=== PATIENT | female | born 1995 | race Caucasian/White ===

== ENCOUNTER 2022-06-26 17:08 | Emergency (ER) | payer OTHER, SELFPAY ==
[2022-06-26 17:39] VITALS: BP 104/68; PULSE 71; RESP 16; TEMP 36.4; O2SAT 99; BMI 27.8
--- NOTE | 2022-06-26 19:08 | ED_ITS ---
HPI - General Adult General Date Seen: 06/26/22 Chief complaint: Abdominal Pain Stated complaint: Stomach Pain Time Seen by Provider: 06/26/22 18:47 Source: patient History of Present Illness HPI narrative: Patient is a 27-year-old woman who reports epigastric discomfort, bloating and nausea for the past week. She has a history of gastroesophageal reflux for which she takes Famontidine twice a day. She has had endoscopy x2 which she says has not shown significant findings, perhaps some mild inflammation. She has no history of ulcers. She has also had colonoscopies in the past secondary to a family history of polyps. She denies any black or bloody stools. She has not had any sharp or severe abdominal pain, abdominal pain has been mild in intensity, radiates to the back. Is not worsened with eating or position. She has had some periods where it has resolved, but is not aware of anything that is helped it feel better or worse, aside from feeling slightly better when she leans forward. She has not tried any medications. She does have a history of endometriosis. Last period was May 31 and her she says that her bleeding was somewhat unusual. Length of her cycle was normal but she says her bleeding was ?strange?. She is trying to get , she has been trying for 1 month, and is very stressed out that her hormones might be out of whack. She had surgery in her nose last month, she was on antibiotics both before surgery and after surgery and she is worried this may have affected her hormones. She was on control briefly but has discontinued that. She is worried about testing for because if it is negative that is going to stress her out. She has not had any urinary symptoms. She denies fevers or chills. She has had pain somewhat like this before although slightly different. No history of gallbladder disease. She does not smoke or drink. Takes occasional nonsteroidals but not significantly. Related Data Home Medications Medication Instructions Recorded Confirmed albuterol sulfate 2.5 mg/3 mL mg INHALATION PRN 05/27/22 05/27/22 (0.083 %) solution for nebulization aluminum chloride 20 % topical See Rx Instructions TOPICAL 05/27/22 05/27/22 solution .Bedtime calcium carbonate 500 mg-vitamin 1 tab PO DAILY 05/27/22 05/27/22 D3 10 mcg (400 unit) tablet carboxymethylcellulose sodium 1 % 1 drp OPHTHALMIC (EYE) 05/27/22 05/27/22 eye liquid gel drops cetirizine 10 mg tablet 10 mg PO DAILY 05/27/22 05/27/22 chlorhexidine gluconate 0.12 % 15 ml PO BID ml 05/27/22 05/27/22 mouthwash clindamycin 1 %-benzoyl peroxide 5 1 TOPICAL BID 05/27/22 05/27/22 % topical gel clindamycin phosphate 1 % lotion 1 TOPICAL BID 05/27/22 05/27/22 cyclosporine 0.05 % eye drops 1 drp OPHTHALMIC (EYE) BID 05/27/22 05/27/22 desoximetasone 0.25 % topical 1 TOPICAL BID 05/27/22 05/27/22 ointment doxylamine succinate 25 mg tablet mg PO 05/27/22 05/27/22 famotidine 20 mg tablet mg PO DAILY 05/27/22 05/27/22 fluticasone propionate 0.005 % 1 TOPICAL BID 05/27/22 05/27/22 topical ointment gabapentin 300 mg capsule mg PO TID 05/27/22 05/27/22 ibuprofen 200 mg tablet mg PO .Qid Prn 05/27/22 05/27/22 loratadine 10 mg tablet 10 mg PO DAILY 05/27/22 05/27/22 mupirocin 2 % topical ointment 1 TOPICAL TID 05/27/22 05/27/22 polyethylene glycol 3350 17 g PO DAILY 05/27/22 05/27/22 gram/dose oral powder quetiapine 100 mg tablet mg PO .Bedtime 05/27/22 05/27/22 suvorexant 10 mg tablet 10 mg PO .Bedtime 05/27/22 05/27/22 tizanidine 4 mg tablet 4 mg PO PRN 05/27/22 05/27/22 triamcinolone acetonide 55 mcg 2 INTRANASAL DAILY 05/27/22 05/27/22 nasal spray aerosol Allergies Allergy/AdvReac Type Severity Reaction Status Date / Time hydrocodone Allergy Mild Rash Verified 06/03/22 15:23 adhesive Allergy Unknown Rash Verified 06/03/22 15:23 Iodinated Diagnostic Agents Allergy Severe Unknown Uncoded 06/03/22 15:23 Review of Systems Status of ROS: Reports: 10 or more systems reviewed and unremarkable except as noted in History and below [facility] Social History Smoking Status: Never smoker Exam Narrative: Exam Narrative: Vital signs as noted below. In general, an alert, well-appearing patient. Head: Normocephalic, atraumatic. Eyes: Pupils are equal reactive. Extraocular movements are full. Conjunctivae are normal. ENT: Mucous membranes are moist. Throat is normal. Neck: Supple without lymphadenopathy. Heart: Regular rate and rhythm. No murmur or rub. Lungs: Clear bilaterally. No increased work of breathing, crackles or wheezes. No CVA tenderness. Abdomen: Soft and nondistended. Mild epigastric tenderness without rebound guarding or rigidity. Negative Rosado's test. No lower abdominal tenderness. No organomegaly. Extremities: Well perfused. No edema. No calf tenderness. Pulses intact. Neurologic: Patient is alert and oriented to person and place. Speech is fluent. Face is symmetric. Moves all extremities equally. Affect: Normal. Skin: Warm and dry. Well perfused. Const: Vital Signs, click to edit/add: Vital Signs - 24 hr 06/26/22 17:39 Temperature 97.6 F Pulse Rate [Right Pulse Oximeter] 71 Respiratory Rate 16 Blood Pressure [Ri ght Upper Arm] 104/68 Pulse Oximetry 99 Documenting provider has reviewed patient's vital signs: yes Course Course Hospital Course: Recommended that we check some lab work, which she is enthusiastic about. I did tell her that we typically would check a test, and initially she did not want me to do that because if it is negative she will find it too stressful. I discussed with her that on the off chance for test was positive that would change the way we would typically workup abdominal pain, so I do think that is an important test to do given that she is actively trying to get . She did agree to go forward with that. Diagnostic considerations include gastritis, peptic ulcer disease, pancreatitis, hepatitis, cholecystitis or biliary colic. I think the latter are somewhat less likely given the absence of severe symptoms over 1 week. She does have a history of endometriosis and that is a possibility as well. She has had a laparoscopic surgery in the past but I think this is unlikely to represent bowel obstruction given the absence of vomiting, significant abdominal tenderness or more diffuse pain. Labs are all reassuring. Her test is negative. UA is otherwise negative. LFTs are normal, lipase is normal. White blood cell count is normal, CRP is less than 0.5. Her abdominal exam is benign, symptoms have been present for a week, my suspicion for significant abdominal process is at this time quite low. I have reviewed all this with her, and suggested that we try a PPI for a couple of weeks and see if she feels improved on that. Given that she is trying to get , I suggested that she take another test in a few days and if that is positive then she may want to discontinue the PPI. She then told me that really she is most concerned about her bloating, and said that she felt she needed a ?scan to evaluate her bloating. She asked if she could have an ultrasound. I explained that given her normal labs, I do not think imaging is likely to be valuable, particularly an ultrasound, at this time, to evaluate bloating. She does not want to try Prilosec, she says she will just follow up with her primary doctor. I printed out her labs for her so that she can take those when she does follow-up. Certainly if she has acute worsening, significant pain, vomiting, fever etcetera I would want her to return to the em ergency department. Vital Signs Vital signs: Initial Vital Signs Temperature 97.6 F 06/26/22 17:39 Temperature Source Temporal Artery Scan 06/26/22 17:39 Pulse Rate 71 06/26/22 17:39 Respiratory Rate 16 06/26/22 17:39 Blood Pressure 104/68 06/26/22 17:39 Blood Pressure Mean 80 06/26/22 17:39 Blood Pressure Position Sitting 06/26/22 17:39 Pulse Oximetry 99 06/26/22 17:39 Oxygen Delivery Method 06/26/22 17:39 Vital Signs Temperature 97.6 F 06/26/22 17:39 Pulse Rate 71 06/26/22 17:39 Respiratory Rate 16 06/26/22 17:39 Blood Pressure 104/68 06/26/22 17:39 Pulse Oximetry 99 06/26/22 17:39 Temperature 97.6 F 06/26/22 17:39 Pulse Rate 71 06/26/22 17:39 Respiratory Rate 16 06/26/22 17:39 Blood Pressure 104/68 06/26/22 17:39 Pulse Oximetry 99 06/26/22 17:39 Medical Decision Making Lab Data Labs: Lab Results 06/26/22 06/26/22 06/26/22 Range/Units 19:05 19:17 19:17 WBC 5.70 (4.50-11.00) K/uL RBC 4.46 (4.00-5.20) m/uL Hgb 13.3 (12.0-16.0) gm/dL Hct 38.8 (33.0-51.0) % MCV 87 (80-100) fL MCH 30 (26-34) pg MCHC 34 (32-36) gm/dL RDW Coeff of Keira 12.3 (11.5-15.5) % Plt Count 257 (140-440) K/uL Neut % (Auto) 52.5 (42.0-72.0) % Lymph % (Auto) 34.2 (20-44) % [place] % (Auto) 9.6 (0.0-11.0) % Eos % (Auto) 2.6 (0.0-7.0) % Baso % (Auto) 1.1 (0.0-3.0) % Neut # (Auto) 2.99 (1.7-7.0) K/uL Lymph # (Auto) 1.95 (0.90-2.90) K/uL [place] # (Auto) 0.50 (0.00-0.90) K/UL Eos # (Auto) 0.15 (0.00-0.50) K/uL Baso # (Auto) 0.06 (0.00-0.30) K/uL Abs Immat Gran (auto) 0.00 (0.00-0.30) K/uL Sodium 140 (135-149) mmol/L Potassium 4.0 (3.6-5.1) mmol/L Chloride 106 (96-114) mmol/L Carbon Dioxide 25 (20-32) mmol/L BUN 11 (5-24) mg/dL Creatinine 0.6 (0.5-1.5) mg/dL Estimated Creat Clear 116.51 Estimated GFR 126 ml/min Glucose 93 (60-115) mg/dL Calcium 9.5 (8.4-10.6) mg/dL Total Bilirubin 0.3 (0.1-1.5) mg/dL Direct Bilirubin 0.1 (0.0-0.5) mg/dL AST 20 (12-35) U/L ALT 14 (4-35) U/L Alkaline Phosphatase 71 (40-150) U/L C-Reactive Protein < 0.5 L (0.5-1.0) mg/dL Total Protein 7.0 (6.0-8.3) g/dL Albumin 4.5 (3.3-5.0) g/dL Lipase 51 (23-300) U/L HCG, Qual (Negative) Urine Color Yellow (Yellow) Urine Appearance Clear (Clear) Urine pH 7.0 (5.0-8.5) Ur Specific [place] 1.015 (1.000-1.030) Urine Protein Negative (Negative) Urine Glucose (UA) Negative (Negative) Urine Ketones Negative (Negative) Urine Blood Negative (Negative) Urine Nitrite Negative (Negative) Urine Bilirubin Negative (Negative) Urine Urobilinogen 0.2 (0.2-1.0) Ur Leukocyte Esterase Negative (Negative) Urine RBC 0-2 (0-2) Urine WBC 0-2 (0-5) Ur Squamous Epith Cells None (None-Few) Urine Bacteria None (None) 06/26/22 Range/Units 19:17 WBC (4.50-11.00) K/uL RBC (4.00-5.20) m/uL Hgb (12.0-16.0) gm/dL Hct (33.0-51.0) % MCV (80-100) fL MCH (26-34) pg MCHC (32-36) gm/dL RDW Coeff of Keira (11.5-15.5) % Plt Count (140-440) K/uL Neut % (Auto) (42.0-72.0) % Lymph % (Auto) (20-44) % [place] % (Auto) (0.0-11.0) % Eos % (Auto) (0.0-7.0) % Baso % (Auto) (0.0-3.0) % Neut # (Auto) (1.7-7.0) K/uL Lymph # (Auto) (0.90-2.90) K/uL [place] # (Auto) (0.00-0.90) K/UL Eos # (Auto) (0.00-0.50) K/uL Baso # (Auto) (0.00-0.30) K/uL Abs Immat Gran (auto) (0.00-0.30) K/uL Sodium (135-149) mmol/L Potassium (3.6-5.1) mmol/L Chloride (96-114) mmol/L Carbon Dioxide (20-32) mmol/L BUN (5-24) mg/dL Creatinine (0.5-1.5) mg/dL Estimated Creat Clear Estimated GFR ml/min Glucose (60-115) mg/dL Calcium (8.4-10.6) mg/dL Total Bilirubin (0.1-1.5) mg/dL Direct Bilirubin (0.0-0.5) mg/dL AST (12-35) U/L ALT (4-35) U/L Alkaline Phosphatase (40-150) U/L C-Reactive Protein (0.5-1.0) mg/dL Total Protein (6.0-8.3) g/dL Albumin (3.3-5.0) g/dL Lipase (23-300) U/L HCG, Qual Negative (Negative) Urine Color (Yellow) Urine Appearance (Clear) Urine pH (5.0-8.5) Ur Specific [place] (1.000-1.030) Urine Protein (Negative) Urine Glucose (UA) (Negative) Urine Ketones (Negative) Urine Blood (Negative) Urine Nitrite (Negative) Urine Bilirubin (Negative) Urine Urobilinogen (0.2-1.0) Ur Leukocyte Esterase (Negative) Urine RBC (0-2) Urine WBC (0-5) Ur Squamous Epith Cells (None-Few) Urine Bacteria (None) Discharge Plan Discharge Clinical Impression: Bloating, Acute epigastric pain Patient Disposition: Home, Self-Care Condition: Stable Instructions: Epigastric Pain (ED) Additional Instructions: Follow-up with your doctor as planned. If you have severe worsening pain, vomiting, fevers etc. return for re-evaluation. You can certainly consider a trial of Prilosec if you would like. Is available [id number]. Prescriptions: No Action cyclosporine 0.05 % drops 1 drp ophthalmic (eye) BID 0RF suvorexant 10 mg tablet 10 mg PO .Bedtime 0RF calcium carbonate-vitamin D3 500 mg-10 mcg (400 unit) tablet 1 tab PO DAILY 0RF chlorhexidine gluconate 0.12 % mouthwash 15 ml PO BID 0RF clindamycin phosphate 1 % lotion 1 topical BID 0RF carboxymethylcellulose sodium 1 % drops, liquid gel 1 drp ophthalmic (eye) 0RF loratadine 10 mg tablet 10 mg PO DAILY 0RF polyethylene glycol 3350 17 gram/dose powder PO DAILY 0RF doxylamine succinate 25 mg tablet PO 0RF gabapentin 300 mg capsule PO TID 0RF ibuprofen 200 mg tablet PO .Qid Prn 0RF desoximetasone 0.25 % ointment 1 topical BID 0RF famotidine 20 mg tablet PO DAILY 0RF fluticasone propionate 0.005 % ointment 1 topical BID 0RF Rx Instructions: TO AFFECTED AREA quetiapine 100 mg tablet PO .Bedtime 0RF clindamycin-benzoyl peroxide 1-5 % gel 1 topical BID 0RF aluminum chloride 20 % solution See Rx Instructions topical .Bedtime 0RF Rx Instructions: USE ONCE NIGHTLY FOR 2-3 NIGHTS, THEN 1-2 TIMES PER WEEK NIGHT. cetirizine 10 mg tablet 10 mg PO DAILY 0RF albuterol sulfate 2.5 mg /3 mL (0.083 %) solution for nebulization inhalation PRN0RF triamcinolone acetonide 55 mcg aerosol,spray 2 intranasal DAILY 0RF mupirocin 2 % ointment 1 topical TID 0RF tizanidine 4 mg tablet 4 mg PO PRN0RF Follow Up/Referrals: Provider,Not a Local [Primary Care Provider] - Stand Alone Forms: [employer] Info Instructions
[2022-06-26 19:23] LABS: Basophils Absolute Auto 0.06 K/uL (0.00-0.30); Basophils Percent Auto 1.1 % (0.0-3.0); Eosinophils Absolute Auto 0.15 K/uL (0.00-0.50); Eosinophils Percent Auto 2.6 % (0.0-7.0); Hematocrit 38.8 % (33.0-51.0); Hemoglobin* 13.3 gm/dL (12.0-16.0); Lymphocytes Absolute Auto 1.95 K/uL (0.90-2.90); Lymphocytes Percent Auto 34.2 % (20-44); Mean Corpuscular HGB Conc 34 gm/dL (32-36); Mean Corpuscular Hemoglobin 30 pg (26-34); Mean Corpuscular Volume 87 fL (80-100); Monocytes Percent Auto 9.6 % (0.0-11.0); Neutrophils Absolute Auto 2.99 K/uL (1.7-7.0); Neutrophils Percent Auto 52.5 % (42.0-72.0); Platelet Count* 257 K/uL (140-440); RDW Coefficient of Variation % 12.3 % (11.5-15.5); Red Blood Count 4.46 m/uL (4.00-5.20)
[2022-06-26 19:35] LABS: Slide Review Reflex No
[2022-06-26 19:37] LABS: Albumin* 4.5 g/dL (3.3-5.0); Chloride* 106 mmol/L (96-114); Sodium* 140 mmol/L (135-149)
[2022-06-26 19:40] LABS: Alkaline Phosphatase* 71 U/L (40-150); Aspartate Amino Transferase* 20 U/L (12-35); Bilirubin Direct* 0.1 mg/dL (0.0-0.5); Bilirubin Total* 0.3 mg/dL (0.1-1.5); Carbon Dioxide* 25 mmol/L (20-32); Creatinine* 0.6 mg/dL (0.5-1.5); Est. Creatinine Clearance* 116.51; Estimated Glomerular Filt Rate 126 ml/min; HCG Qualitative Serum* Negative (Negative)
[2022-06-26 19:41] LABS: Alanine Aminotransferase* 14 U/L (4-35); Blood Urea Nitrogen* 11 mg/dL (5-24); Calcium* 9.5 mg/dL (8.4-10.6); Glucose* 93 mg/dL (60-115); Lipase* 51 U/L (23-300)
[2022-06-26 19:46] LABS: C Reactive Protein* < 0.5 mg/dL (0.5-1.0)
[2022-06-26 19:55] LABS: Appearance Urine Clear (Clear); Bilirubin Urine Negative (Negative); Blood Urine Negative (Negative); Color Urine Yellow (Yellow); Glucose Urine Negative (Negative); Ketones Urine Negative (Negative); Leukocyte Esterase Urine Negative (Negative); Nitrite Urine Negative (Negative); Protein Urine Negative (Negative); Specific Gravity Urine 1.015 (1.000-1.030); Urobilinogen Urine 0.2 (0.2-1.0)
[2022-06-26 20:08] LABS: RBC Urine 0-2 (0-2); WBC Urine 0-2 (0-5)
== END 2022-06-26 20:45 | disposition home or self-care (01) ==
PROVIDERS: Emergency Provider Emergency Medicine
DX: R10.13 Epigastric pain (principal); R14.0 Abdominal distension (gaseous)
CPT/HCPCS: 36415; 80048; 80076; 81001; 83690; 84703; 85025; 86140; 99284

== ENCOUNTER 2022-07-10 18:03 | Emergency (ER) | payer OTHER, SELFPAY ==
[2022-07-10 18:22] VITALS: BP 112/67; PULSE 74; RESP 16; TEMP 36.6; O2SAT 100; BMI 27.5
--- NOTE | 2022-07-10 18:29 | ED.NURSE ---
Pt answered yes to suicide screening question- have you had thoughts of suicide in the last 2 weeks. Pt has spoken to her spouse and her psychiatrist about this. Dr Welsh updated.
--- NOTE | 2022-07-10 18:36 | ED_ITS ---
HPI - General Adult General Time Seen by Provider: 18:36 Date Seen: 07/10/22 Chief complaint: Eye Problems Stated complaint: Left eye pain Time Seen by Provider: 07/10/22 18:28 Source: patient Mode of arrival: ambulatory Limitations: no limitations History of Present Illness HPI narrative: Patient is a 27 year white female has history of seasonal allergies, had some yellowish mattery material under her eyelid on the left this morning seems to gotten better today. She took her son to the zoo recently. She has history of chronic dry eyes, uses Restasis, and also uses Zyrtec daily. She has no eye redness now and no visual problem no sinus congestion or headache Related Data Home Medications Medication Instructions Recorded Confirmed albuterol sulfate 2.5 mg/3 mL mg inhalation PRN 05/27/22 05/27/22 (0.083 %) solution for nebulization aluminum chloride 20 % topical See Rx Instructions topical 05/27/22 05/27/22 solution .Bedtime calcium carbonate 500 mg-vitamin 1 tab PO DAILY 05/27/22 05/27/22 D3 10 mcg (400 unit) tablet carboxymethylcellulose sodium 1 % 1 drp ophthalmic (eye) 05/27/22 05/27/22 eye liquid gel drops cetirizine 10 mg tablet 10 mg PO DAILY 05/27/22 05/27/22 chlorhexidine gluconate 0.12 % 15 ml PO BID 05/27/22 05/27/22 mouthwash clindamycin 1 %-benzoyl peroxide 5 1 topical BID 05/27/22 05/27/22 % topical gel clindamycin phosphate 1 % lotion 1 topical BID 05/27/22 05/27/22 cyclosporine 0.05 % eye drops 1 drp ophthalmic (eye) BID 05/27/22 05/27/22 desoximetasone 0.25 % topical 1 topical BID 05/27/22 05/27/22 ointment doxylamine succinate 25 mg tablet mg PO 05/27/22 05/27/22 famotidine 20 mg tablet mg PO DAILY 05/27/22 05/27/22 fluticasone propionate 0.005 % 1 topical BID 05/27/22 05/27/22 topical ointment gabapentin 300 mg capsule mg PO TID 05/27/22 05/27/22 ibuprofen 200 mg tablet mg PO .Qid Prn 05/27/22 05/27/22 loratadine 10 mg tablet 10 mg PO DAILY 05/27/22 05/27/22 mupirocin 2 % topical ointment 1 topical TID 05/27/22 05/27/22 polyethylene glycol 3350 17 g PO DAILY 05/27/22 05/27/22 gram/dose oral powder quetiapine 100 mg tablet mg PO .Bedtime 05/27/22 05/27/22 suvorexant 10 mg tablet 10 mg PO .Bedtime 05/27/22 05/27/22 tizanidine 4 mg tablet 4 mg PO PRN 05/27/22 05/27/22 triamcinolone acetonide 55 mcg 2 intranasal DAILY 05/27/22 05/27/22 nasal spray aerosol Allergies Allergy/AdvReac Type Severity Reaction Status Date / Time hydrocodone Allergy Mild Rash Verified 06/03/22 15:23 adhesive Allergy Unknown Rash Verified 06/03/22 15:23 Iodinated Diagnostic Agents Allergy Severe Unknown Uncoded 06/03/22 15:23 Review of Systems Narrative: Negative for recent allergies, cold, COVID symptoms PFSH PFSH Social History Smoking Status: Former smoker Do you use any of these nicotine containing products: None How often do you have a drink containing alcohol: never How often do you have six or more drinks on one occasion: Never AUDIT-C Alcohol total score: 0 Non-prescribed substance use: denies use Exam Narrative: Exam Narrative: Objective HEENT is unremarkable no evidence of conjunctivitis, no facial asymmetry no scleral icterus Const: Vital Signs, click to edit/add: Vital Signs - 24 hr 07/10/22 18:22 Temperature 97.9 F Pulse Rate [Left P ulse Oximeter] 74 Respiratory Rate 16 Blood Pressure [Le ft Upper Arm] 112/67 Pulse Oximetry 100 Oxygen Delivery Me thod Room Air Course Vital Signs Vital signs: Initial Vital Signs Temperature 97.9 F 07/10/22 18:22 Temperature Source Temporal Artery Scan 07/10/22 18:22 Pulse Rate 74 07/10/22 18:22 Respiratory Rate 16 07/10/22 18:22 Blood Pressure 112/67 07/10/22 18:22 Blood Pressure Mean 82 07/10/22 18:22 Blood Pressure Position Sitting 07/10/22 18:22 Pulse Oximetry 100 07/10/22 18:22 Oxygen Delivery Method 07/10/22 18:22 Vital Signs Temperature 97.9 F 07/10/22 18:22 Pulse Rate 74 07/10/22 18:22 Respiratory Rate 16 07/10/22 18:22 Blood Pressure 112/67 07/10/22 18:22 Pulse Oximetry 100 07/10/22 18:22 Oxygen Delivery Method 07/10/22 18:22 Temperature 97.9 F 07/10/22 18:22 Pulse Rate 74 07/10/22 18:22 Respiratory Rate 16 07/10/22 18:22 Blood Pressure 112/67 07/10/22 18:22 Pulse Oximetry 100 07/10/22 18:22 Oxygen Delivery Method 07/10/22 18:22 Medical Decision Making MDM Narrative Medical decision making narrative: Patient has a history of dry eyes, would continue the Restasis, she also has a history of seasonal allergies and she may wish to substitute Benadryl 25 mg b.i.d. to t.i.d. over the next several days and then return to his Zyrtec after that if she improves. I do not see evidence of conjunctivitis at this point, update her regular doctor within the next couple of days as needed Discharge Plan Discharge Clinical Impression: Allergies Patient Disposition: Home, Self-Care Condition: Stable Additional Instructions: Recommend continue her Restasis eyedrops, may try some Benadryl instead of the Zyrtec for a couple of days, would not use Zyrtec and Benadryl the same day. Update her primary care doctor as needed Activity Level: No Restrictions Discharge Diet: Regular Prescriptions: No Action cyclosporine 0.05 % drops 1 drp ophthalmic (eye) BID suvorexant 10 mg tablet 10 mg PO .Bedtime calcium carbonate-vitamin D3 500 mg-10 mcg (400 unit) tablet 1 tab PO DAILY chlorhexidine gluconate 0.12 % mouthwash 15 ml PO BID clindamycin phosphate 1 % lotion 1 topical BID carboxymethylcellulose sodium 1 % drops, liquid gel 1 drp ophthalmic (eye) loratadine 10 mg tablet 10 mg PO DAILY polyethylene glycol 3350 17 gram/dose powder PO DAILY doxylamine succinate 25 mg tablet PO gabapentin 300 mg capsule PO TID ibuprofen 200 mg tablet PO .Qid Prn desoximetasone 0.25 % ointment 1 topical BID famotidine 20 mg tablet PO DAILY fluticasone propionate 0.005 % ointment 1 topical BID Rx Instructions: TO AFFECTED AREA quetiapine 100 mg tablet PO .Bedtime clindamycin-benzoyl peroxide 1-5 % gel 1 topical BID aluminum chloride 20 % solution See Rx Instructions topical .Bedtime Rx Instructions: USE ONCE NIGHTLY FOR 2-3 NIGHTS, THEN 1-2 TIMES PER WEEK NIGHT. cetirizine 10 mg tablet 10 mg PO DAILY albuterol sulfate 2.5 mg /3 mL (0.083 %) solution for nebulization inhalation PRN triamcinolone acetonide 55 mcg aerosol,spray 2 intranasal DAILY mupirocin 2 % ointment 1 topical TID tizanidine 4 mg tablet 4 mg PO PRN Follow Up/Referrals: Provider,Not a Local [Primary Care Provider] - Stand Alone [facility]: [facility] Info Instructions
== END 2022-07-10 19:06 | disposition home or self-care (01) ==
LOC: ED 18:39
PROVIDERS: Emergency Provider Family Medicine
DX: H04.123 Dry eye syndrome of bilateral lacrimal glands (principal)
CPT/HCPCS: 99283

== ENCOUNTER 2022-12-22 19:01 | Emergency (ER) | payer OTHER, SELFPAY ==
--- NOTE | 2022-12-22 19:05 | ED.NURSE ---
Patient placed on camera with 1:1 visualization for safety.
[2022-12-22 19:13] VITALS: BP 119/70; PULSE 75; RESP 18; TEMP 36.8; O2SAT 99; BMI 27.5
--- NOTE | 2022-12-22 19:20 | ED.NURSE ---
Patient up to bathroom, urine sample obtained. Patient changed into behavioral health scrubs and personal belonging inventory and stored in locked medication room. Clothes will be taken be spouse. secured entrance monitor and pulse ox applied. Patient is alert and orientated.
[2022-12-22 20:08] VITALS: O2SAT 99
[2022-12-22 20:36] LABS: Basophils Absolute Auto 0.05 K/uL (0.00-0.30); Basophils Percent Auto 0.6 % (0.0-3.0); Eosinophils Absolute Auto 0.03 K/uL (0.00-0.50); Eosinophils Percent Auto 0.4 % (0.0-7.0); Hematocrit 41.7 % (33.0-51.0); Hemoglobin* 13.9 gm/dL (12.0-16.0); Immature Granulocytes Abs Auto 0.01 K/uL (0.00-0.30); Immature Granulocytes Pct Auto 0.1 %; Mean Corpuscular HGB Conc 33 gm/dL (32-36); Mean Corpuscular Hemoglobin 30 pg (26-34); Mean Corpuscular Volume 89 fL (80-100); Monocytes Percent Auto 3.8 % (0.0-11.0); Neutrophils Percent Auto 77.1 % (42.0-72.0); Platelet Count* 276 K/uL (140-440); RDW Coefficient of Variation % 12.9 % (11.5-15.5); Red Blood Count 4.71 m/uL (4.00-5.20); White Blood Count* 7.95 K/uL (4.50-11.00)
[2022-12-22 20:41] LABS: Amphetamine Screen Urine Negative (Negative); Barbiturate Screen Urine Negative (Negative); Cannabinoid Screen Urine Negative (Negative); Cocaine Screen Urine Negative (Negative); Methadone Screen Urine Negative (Negative); Methamphetamines Screen Urine Negative (Negative); Opiate Screen Urine Negative (Negative); Oxycodone Screen Urine Negative (Negative); Phencyclidine Screen Urine Negative (Negative); Tricyclic Antidepressant Urine Negative (Negative)
[2022-12-22 20:42] LABS: Slide Review Reflex No
[2022-12-22 20:44] LABS: Benzodiazepines Screen Urine POSITIVE (Negative)
[2022-12-22 20:49] LABS: Albumin* 4.6 g/dL (3.3-5.0); Chloride* 112 mmol/L (96-114); Sodium* 146 mmol/L (135-149)
[2022-12-22 20:50] LABS: Potassium* 3.8 mmol/L (3.6-5.1)
[2022-12-22 20:51] LABS: Carbon Dioxide* 25 mmol/L (20-32); Creatinine* 0.6 mg/dL (0.5-1.5); Est. Creatinine Clearance* 116.51; Estimated Glomerular Filt Rate 126 ml/min
[2022-12-22 20:52] LABS: Alanine Aminotransferase* 14 U/L (4-35); Alkaline Phosphatase* 69 U/L (40-150); Aspartate Amino Transferase* 22 U/L (12-35); Bilirubin Direct* 0.2 mg/dL (0.0-0.5); Bilirubin Total* 0.6 mg/dL (0.1-1.5); Blood Urea Nitrogen* 9 mg/dL (5-24); Calcium* 9.3 mg/dL (8.4-10.6); Glucose* 97 mg/dL (60-115); Total Protein* 7.4 g/dL (6.0-8.3)
[2022-12-22 20:53] LABS: Acetaminophen* < 10.0 ug/mL (10.0-30.0); Ethanol* 0.16 % (0.01-0.03); Salicylate* < 1.0 mg/dL (1.0-10)
[2022-12-22 21:00] VITALS: BP 114/65
[2022-12-22 21:30] VITALS: BP 104/74; PULSE 86; RESP 14; O2SAT 98
[2022-12-22 21:42] LABS: PCR FLU A Negative PCR FLU A (Negative); PCR FLU B Negative PCR FLU B (Negative); PCR RSV Negative PCR RSV (Negative)
[2022-12-22 21:43] LABS: SARS PCR* Negative SARS-CoV-2 (Negative)
[2022-12-22 21:43] LABS: Thyroid Stimulating Hormone* 0.608 uIU/mL (0.270-4.20)
[2022-12-22 21:54] LABS: HCG Qualitative Serum* Negative (Negative)
[2022-12-22 22:01] LABS: Appearance Urine Clear (Clear); Bilirubin Urine Negative (Negative); Blood Urine Negative (Negative); Color Urine Yellow (Yellow); Glucose Urine Negative (Negative); Ketones Urine Negative (Negative); Leukocyte Esterase Urine Negative (Negative); Nitrite Urine Negative (Negative); Protein Urine Negative (Negative); Urobilinogen Urine 0.2 (0.2-1.0)
--- NOTE | 2022-12-22 22:06 | ED.PSYCH ---
HPI - Psych General Date Seen: 12/22/22 Chief Complaint: Psychiatric Problem/Disorder Stated Complaint: Mental Health Time Seen by Provider: 12/22/22 19:43 Source: patient and family Mode of arrival: EMS Limitations: no limitations History of Present Illness HPI Narrative: patient is a 27-year-old female who has a history of depression, presents with suicidal ideation and suicidal gesture, well she took 7 tablets of 2 mg of Ativan at approximately 2:00 p.m. in combine this with alcohol. She did this for the intent of injuring herself. As she is going through a lot of stress in her life, as her partner recently underwent prostate surgery, for cancer. She had appointment today with her counselor, has appointment tomorrow with her psychiatrist. She has a remote history in the past of suicidal ideation and attempt, she also used a knife to cut her right arm. She is somewhat sleepy here, alert and oriented x3 however. Poison Control was contacted and said that her levels of Ativan would peak in the next couple hours, recommended keeping her for 8 hours of observation in the event that there was a co ingestion. She really can not give a lot of meaningful history over why she did this, do a combination of alcohol and Ativan, her is here today with her. MD complaint: suicidal ideation Onset (ago): hour(s) History of same: Yes Related Data Home Medications Medication Instructions Recorded Confirmed calcium carbonate 500 mg-vitamin 1 tab PO DAILY 05/27/22 12/22/22 D3 10 mcg (400 unit) tablet cetirizine 10 mg tablet 10 mg PO DAILY 05/27/22 12/22/22 clindamycin 1 %-benzoyl peroxide 5 1 topical BID 05/27/22 08/12/22 % topical gel famotidine 20 mg tablet 20 mg PO DAILY 05/27/22 12/22/22 gabapentin 300 mg capsule 900 mg PO TID 05/27/22 12/22/22 loratadine 10 mg tablet 10 mg PO DAILY 05/27/22 12/22/22 quetiapine 100 mg tablet 100 mg PO HS 05/27/22 12/22/22 suvorexant 10 mg tablet 10 mg PO .Bedtime 05/27/22 12/22/22 lorazepam 2 mg tablet 2 mg PO DAILY PRN 12/22/22 12/22/22 quetiapine 50 mg tablet 100 mg PO HS 12/22/22 12/22/22 sertraline 100 mg tablet 100 mg PO DAILY 12/22/22 12/22/22 Allergies Allergy/AdvReac Type Severity Reaction Status Date / Time No Known Drug Allergies Allergy Verified 12/22/22 19:33 Review of Systems Status of ROS: Reports: 10 or more systems reviewed and unremarkable except as noted in History and below [facility] Medical History (Updated 12/23/22 @ 04:23 by Jose Ramon Sierra RN) Anxiety Asthma Bipolar 1 disorder Depression Fibromyalgia PTSD (post-traumatic stress disorder) PUD (peptic ulcer disease) Surgical History (Updated 12/23/22 @ 04:23 by Jose Ramon Sierra RN) History of laparoscopy History of tonsillectomy Social History Smoking Status: Never smoker Do you use any of these nicotine containing products: None Non-prescribed substance use: denies use Exam Narrative: Exam Narrative: She is examined in room 1, with her present. Patient is speaking normally,Slight problem with slurring words, oriented x3. Head eyes ears nose and throat exam show equal pupils, no scleral icterus, extraocular muscles are normal, no facial droop, speech is normal, trachea normal and midline. Thyroid normal midline palpable not enlarged. Chest shows symmetrical rise bilaterally, normal auscultation with no wheezes, no increased work of breathing, no overt bruising or lesions seen, no tenderness is noted on auscultation. Heart sounds normal with no S3-S4 no murmurs clicks or gallops. Abdomen shows no obvious masses or hepatosplenomegaly, no organomegaly, bowel sounds are normal in all quadrants. No tenderness is noted also in all quadrants. Upper and lower extremities show normal power, normal range of motion, pulses are normal, sensations normal, fine motor movements are normal, pelvis is stable to rocking. Cervical spine shows normal range of motion, and palpably not tender. Thoracic spine shows normal range of motion, and palpably not tender, lumbar spine shows no tenderness to palpation percussion and is otherwise normal range of motion. Skin shows no rashes, petechiae or eccymosis. she does have some superficial horizontal cuts along the left upper forearm, on the volar surface. None of these is suturable, bandages are applied. Const: Vital Signs, click to edit/add: Vital Signs - 24 hr 12/22/22 19:13 12/22/22 20:08 12/22/22 21:00 Temperature 98.2 F Pulse Rate [Right Pulse Oximeter] 75 Respiratory Rate 18 Blood Pressure [Ri ght Upper Arm] 119/70 114/65 Pulse Oximetry 99 99 Oxygen Delivery Me thod Room Air 12/22/22 21:30 12/23/22 00:21 12/23/22 02:39 Temperature Pulse Rate [Right Pulse Oximeter] 86 103 H 89 Respiratory Rate 14 16 14 Blood Pressure [Ri ght Upper Arm] 104/74 107/67 Pulse Oximetry 98 100 98 Oxygen Delivery Me thod Room Air Room Air Room Air 12/23/22 05:56 Temperature Pulse Rate [Right Pulse Oximeter] 77 Respiratory Rate 16 Blood Pressure [Ri ght Upper Arm] 100/57 L Pulse Oximetry 100 Oxygen Delivery Me thod Room Air Documenting provider has reviewed patient's vital signs: yes Course Course Hospital Course: patient's laboratory work is reviewed, her alcohol level is elevated at 0.16, she will need to be watched overnight, and sober up, then we can get a mental health assessment, go forward with this. She attempts to leave before this is done, we will put her on a 72 hour hold. Reevaluation(s) Reevaluation #1: I met with the patient, this morning, she is here with her , she is very remorseful, she tells me that even though she did take the medications at the time. She was feeling down, but was really not true full eat suicidal as she only took a total of 7 mg. She did drink a significant amount of alcohol with this. She does understand that she is isolated, and is willing to see a new therapist she does not have situation currently where she likes or trust her current therapist. She has an appointment today with her psychiatrist, which she has been with for quite some time. She was willing to sinus safety contract, but was not willing to go voluntarily to inpatient treatment. Both her and her think that this time this is not needed. I then spoke with the mental health executive relations specialist Kimberley, she feels that at the present time outpatient treatment can fit her current needs, she does worry about the isolation of the patient, and would like her to get a new therapist as she does not believe she is really bonding to her current 1. Time: 07:35 Vital Signs Vital signs: Initial Vital Signs Temperature 98.2 F 12/22/22 19:13 Temperature Source Temporal Artery Scan 12/22/22 19:13 Pulse Rate 75 12/22/22 19:13 Respiratory Rate 18 12/22/22 19:13 Blood Pressure 119/70 12/22/22 19:13 Blood Pressure Mean 86 12/22/22 19:13 Blood Pressure Position Supine 12/22/22 19:13 Pulse Oximetry 99 12/22/22 19:13 Oxygen Delivery Method 12/22/22 19:13 Vital Signs Temperature 98.2 F 12/22/22 19:13 Pulse Rate 75 12/22/22 19:13 Respiratory Rate 18 12/22/22 19:13 Blood Pressure 119/70 12/22/22 19:13 Pulse Oximetry 99 12/22/22 19:13 Oxygen Delivery Method 12/22/22 19:13 Temperature 98.2 F 12/22/22 19:13 Pulse Rate 77 12/23/22 05:56 Respiratory Rate 16 12/23/22 05:56 Blood Pressure 100/57 L 12/23/22 05:56 Pulse Oximetry 100 12/23/22 05:56 Oxygen Delivery Method 12/23/22 05:56 MDM - Psych MDM Narrative Medical decision making narrative: Differential diagnosis includes but is not limited life-threatening diagnosis is of severe depression with suicidal plan, chemical intoxication with suicidal ideation and risk of self-harm, schizoaffective disorder with risk of self-harm, bipolar disorder with severe depressive phase and risk of self-harm, personality disorder with risk of self-harm, depression due to hyperthyroidism, metabolic derangement, or [employer] abnormality Medical Records Attestation: I reviewed the patient's medical records. Lab Data Attestation: I reviewed the patient's lab results. Labs: Lab Results 12/22/22 12/22/22 12/22/22 Range/Units 20:00 20:23 20:26 WBC (4.50-11.00) K/uL RBC (4.00-5.20) m/uL Hgb (12.0-16.0) gm/dL Hct (33.0-51.0) % MCV (80-100) fL MCH (26-34) pg MCHC (32-36) gm/dL RDW Coeff of Keira (11.5-15.5) % Plt Count (140-440) K/uL Neut % (Auto) (42.0-72.0) % Lymph % (Auto) (20-44) % Butler % (Auto) (0.0-11.0) % Eos % (Auto) (0.0-7.0) % Baso % (Auto) (0.0-3.0) % Neut # (Auto) (1.7-7.0) K/uL Lymph # (Auto) (0.90-2.90) K/uL Butler # (Auto) (0.00-0.90) K/UL Eos # (Auto) (0.00-0.50) K/uL Baso # (Auto) (0.00-0.30) K/uL Sodium (135-149) mmol/L Potassium (3.6-5.1) mmol/L Chloride (96-114) mmol/L Carbon Dioxide (20-32) mmol/L BUN (5-24) mg/dL Creatinine (0.5-1.5) mg/dL Estimated Creat Clear Estimated GFR ml/min Glucose (60-115) mg/dL Calcium (8.4-10.6) mg/dL Total Bilirubin (0.1-1.5) mg/dL Direct Bilirubin (0.0-0.5) mg/dL AST (12-35) U/L ALT (4-35) U/L Alkaline Phosphatase (40-150) U/L Total Protein (6.0-8.3) g/dL Albumin (3.3-5.0) g/dL TSH (0.270-4.20) uIU/mL HCG, Qual Negative (Negative) Urine Color (Yellow) Urine Appearance (Clear) Urine pH (5.0-8.5) Ur Specific [place] (1.000-1.030) Urine Protein (Negative) Urine Glucose (UA) (Negative) Urine Ketones (Negative) Urine Blood (Negative) Urine Nitrite (Negative) Urine Bilirubin (Negative) Urine Urobilinogen (0.2-1.0) Ur Leukocyte Esterase (Negative) Salicylates (1.0-10) mg/dL Urine Opiates Screen Negative (Negative) Ur Oxycodone Screen Negative (Negative) Urine Methadone Screen Negative (Negative) Ur Propoxyphene Screen Negative (Negative) Acetaminophen (10.0-30.0) ug/mL Ur Barbiturates Screen Negative (Negative) U Tricyclic Antidepress Negative (Negative) Ur Phencyclidine Scrn Negative (Negative) Ur Amphetamines Screen Negative (Negative) U Methamphetamines Scrn Negative (Negative) U Benzodiazepines Scrn POSITIVE A* (Negative) Urine Cocaine Screen Negative (Negative) U Marijuana (THC) Screen Negative (Negative) Ur Drug Screen Comment See Note Ethyl Alcohol (0.01-0.03) % SARS-CoV-2 (PCR) Negative SARS-CoV-2 (Negative) Influenza Type A (PCR) Negative PCR FLU A (Negative) Influenza Type B (PCR) Negative PCR FLU B (Negative) RSV (PCR) Negative PCR RSV (Negative) 12/22/22 12/22/22 12/22/22 Range/Units 20:26 20:26 20:26 WBC 7.95 (4.50-11.00) K/uL RBC 4.71 (4.00-5.20) m/uL Hgb 13.9 (12.0-16.0) gm/dL Hct 41.7 (33.0-51.0) % MCV 89 (80-100) fL MCH 30 (26-34) pg MCHC 33 (32-36) gm/dL RDW Coeff of Keira 12.9 (11.5-15.5) % Plt Count 276 (140-440) K/uL Neut % (Auto) 77.1 H (42.0-72.0) % Lymph % (Auto) 18.0 L (20-44) % Butler % (Auto) 3.8 (0.0-11.0) % Eos % (Auto) 0.4 (0.0-7.0) % Baso % (Auto) 0.6 (0.0-3.0) % Neut # (Auto) 6.10 (1.7-7.0) K/uL Lymph # (Auto) 1.40 (0.90-2.90) K/uL Butler # (Auto) 0.30 (0.00-0.90) K/UL Eos # (Auto) 0.03 (0.00-0.50) K/uL Baso # (Auto) 0.05 (0.00-0.30) K/uL Sodium 146 (135-149) mmol/L Potassium 3.8 (3.6-5.1) mmol/L Chloride 112 (96-114) mmol/L Carbon Dioxide 25 (20-32) mmol/L BUN 9 (5-24) mg/dL Creatinine 0.6 (0.5-1.5) mg/dL Estimated Creat Clear 116.51 Estimated GFR 126 ml/min Glucose 97 (60-115) mg/dL Calcium 9.3 (8.4-10.6) mg/dL Total Bilirubin 0.6 (0.1-1.5) mg/dL Direct Bilirubin 0.2 (0.0-0.5) mg/dL AST 22 (12-35) U/L ALT 14 (4-35) U/L Alkaline Phosphatase 69 (40-150) U/L Total Protein 7.4 (6.0-8.3) g/dL Albumin 4.6 (3.3-5.0) g/dL TSH 0.608 (0.270-4.20) uIU/mL HCG, Qual (Negative) Urine Color (Yellow) Urine Appearance (Clear) Urine pH (5.0-8.5) Ur Specific [place] (1.000-1.030) Urine Protein (Negative) Urine Glucose (UA) (Negative) Urine Ketones (Negative) Urine Blood (Negative) Urine Nitrite (Negative) Urine Bilirubin (Negative) Urine Urobilinogen (0.2-1.0) Ur Leukocyte Esterase (Negative) Salicylates < 1.0 L (1.0-10) mg/dL Urine Opiates Screen (Negative) Ur Oxycodone Screen (Negative) Urine Methadone Screen (Negative) Ur Propoxyphene Screen (Negative) Acetaminophen < 10.0 L (10.0-30.0) ug/mL Ur Barbiturates Screen (Negative) U Tricyclic Antidepress (Negative) Ur Phencyclidine Scrn (Negative) Ur Amphetamines Screen (Negative) U Methamphetamines Scrn (Negative) U Benzodiazepines Scrn (Negative) Urine Cocaine Screen (Negative) U Marijuana (THC) Screen (Negative) Ur Drug Screen Comment Ethyl Alcohol 0.16 H (0.01-0.03) % SARS-CoV-2 (PCR) (Negative) Influenza Type A (PCR) (Negative) Influenza Type B (PCR) (Negative) RSV (PCR) (Negative) 12/22/22 12/22/22 Range/Units 20:26 21:55 WBC (4.50-11.00) K/uL RBC (4.00-5.20) m/uL Hgb (12.0-16.0) gm/dL Hct (33.0-51.0) % MCV (80-100) fL MCH (26-34) pg MCHC (32-36) gm/dL RDW Coeff of Keira (11.5-15.5) % Plt Count (140-440) K/uL Neut % (Auto) (42.0-72.0) % Lymph % (Auto) (20-44) % Butler % (Auto) (0.0-11.0) % Eos % (Auto) (0.0-7.0) % Baso % (Auto) (0.0-3.0) % Neut # (Auto) (1.7-7.0) K/uL Lymph # (Auto) (0.90-2.90) K/uL Butler # (Auto) (0.00-0.90) K/UL Eos # (Auto) (0.00-0.50) K/uL Baso # (Auto) (0.00-0.30) K/uL Sodium (135-149) mmol/L Potassium (3.6-5.1) mmol/L Chloride (96-114) mmol/L Carbon Dioxide (20-32) mmol/L BUN (5-24) mg/dL Creatinine (0.5-1.5) mg/dL Estimated Creat Clear Estimated GFR ml/min Glucose (60-115) mg/dL Calcium (8.4-10.6) mg/dL Total Bilirubin (0.1-1.5) mg/dL Direct Bilirubin (0.0-0.5) mg/dL AST (12-35) U/L ALT (4-35) U/L Alkaline Phosphatase (40-150) U/L Total Protein (6.0-8.3) g/dL Albumin (3.3-5.0) g/dL TSH (0.270-4.20) uIU/mL HCG, Qual (Negative) Urine Color Yellow (Yellow) Urine Appearance Clear (Clear) Urine pH 7.0 (5.0-8.5) Ur Specific [place] 1.010 (1.000-1.030) Urine Protein Negative (Negative) Urine Glucose (UA) Negative (Negative) Urine Ketones Negative (Negative) Urine Blood Negative (Negative) Urine Nitrite Negative (Negative) Urine Bilirubin Negative (Negative) Urine Urobilinogen 0.2 (0.2-1.0) Ur Leukocyte Esterase Negative (Negative) Salicylates (1.0-10) mg/dL Urine Opiates Screen (Negative) Ur Oxycodone Screen (Negative) Urine Methadone Screen (Negative) Ur Propoxyphene Screen (Negative) Acetaminophen (10.0-30.0) ug/mL Ur Barbiturates Screen (Negative) U Tricyclic Antidepress (Negative) Ur Phencyclidine Scrn (Negative) Ur Amphetamines Screen (Negative) U Methamphetamines Scrn (Negative) U Benzodiazepines Scrn (Negative) Urine Cocaine Screen (Negative) U Marijuana (THC) Screen (Negative) Ur Drug Screen Comment Ethyl Alcohol Cancelled (0.01-0.03) % SARS-CoV-2 (PCR) (Negative) Influenza Type A (PCR) (Negative) Influenza Type B (PCR) (Negative) RSV (PCR) (Negative) ECG Data Attestation: I personally reviewed and interpreted this ECG as follows: ECG interpretation date: 12/22/22 Prior ECG tracings: not available for review Interpretation: Normal sinus rhythm with a ventricular rate of 89, there is some artifact from movement, but otherwise normal EKG. Discharge Plan Discharge Clinical Impression: Suicide attempt by benzodiazepine overdose, Suicidal ideation Patient Disposition: Xfer Other Prescriptions: No Action suvorexant 10 mg tablet 10 mg PO .Bedtime calcium carbonate-vitamin D3 500 mg-10 mcg (400 unit) tablet 1 tab PO DAILY loratadine 10 mg tablet 10 mg PO DAILY gabapentin 300 mg capsule 900 mg PO TID famotidine 20 mg tablet 20 mg PO DAILY quetiapine 100 mg tablet 100 mg PO HS clindamycin-benzoyl peroxide 1-5 % gel 1 topical BID cetirizine 10 mg tablet 10 mg PO DAILY lorazepam 2 mg tablet 2 mg PO DAILY PRN quetiapine 50 mg tablet 100 mg PO HS sertraline 100 mg tablet 100 mg PO DAILY Stand Alone Forms: [employer] Info Instructions
--- NOTE | 2022-12-22 22:12 | ED.NURSE ---
Gave update to poison control, poison control signing off unless further assistance required.
--- NOTE | 2022-12-22 23:32 | ED.NURSE ---
Patient up to bathroom. Ate food brought in by .
[2022-12-23 00:21] VITALS: BP 107/67; PULSE 103; RESP 16; O2SAT 100
--- NOTE | 2022-12-23 00:37 | ED.NURSE ---
Patient requesting home medications. MD updated. Lacerations to right arm cleansed. Bacitracin, non adherent, Kerlix and Coban applied.
[2022-12-23] MEDS: QUETIAPINE 100 MG TABLET PO (01:32)
[2022-12-23] MEDS: FAMOTIDINE 20 MG TABLET PO (01:32)
[2022-12-23] MEDS: GABAPENTIN 300 MG CAPSULE 900 MG PO (01:32)
[2022-12-23] MEDS: ACETAMINOPHEN 500 MG TABLET 1000 MG PO (01:44)
[2022-12-23] MEDS: ONDANSETRON ODT 4 MG TAB PO (01:45)
--- NOTE | 2022-12-23 02:32 | ED.NURSE ---
Video monitoring continues. Patient is observed to be sleeping. Respirations easy, even and unlabored. remains with patient.
[2022-12-23 02:39] VITALS: PULSE 89; RESP 14; O2SAT 98
[2022-12-23 05:56] VITALS: BP 100/57; PULSE 77; RESP 16; O2SAT 100
--- NOTE | 2022-12-23 06:02 | ED.NURSE ---
Patient speaking with
--- NOTE | 2022-12-23 08:30 | ED.NURSE ---
pt and sleeping in bed, awoke to voice. safety plan and dc given, sl removed intact. pt has dressing to R forearm. breakfast given to pt before she left with .
--- OUTSIDE RECORDS SUMMARY | 2022-12-24 12:50 | XMS_ITS ---
:1995 Author Name Rocio Hackett Care Team Providers Name Role Phone Rocio Hackett Unavailable Unavailable PROBLEMS Type Condition ICD9-CM Code EBR70-EC Code Onset Condition SNO MED Code Dates Status Problem Rectocele N81.6 Active 277571253 Problem Cystocele, N81.10 Active 634907372 unspecified Problem Urinary hesitancy R39.11 Active 59 20784 Problem Endometriosis N80.9 Active 880263 008 Problem Interstitial N30.10 Active 5971214 03 cystitis Problem Cystocele and N81.2 Active 271847 002 rectocele with incomplete uterovaginal prolapse Problem Anxiety disorder, F41.9 Active 19 8202715 unspecified Problem Major depressive F32.9 Active 369 40440 disorder, single episode, unspecified Problem Mixed incontinence N39.46 Active 4 32401860 urge and stress ALLERGIES No Known Allergies ENCOUNTERS Encounter Location Date Diagnosis [facility] [address] Jul, [place], [place] [id number] [facility] [address] Jun, [place], [place] [phone] [facility] [address], [address] [address] [facility] [address] [place] Jun, [place] [address] M62.89 [facility] [address], [place] [address] [place] [phone] [facility] [address], Cysto abhilash and rectocele [address] with inco mplete [phone] uterovaginal pro lapse N81.2 ; Anxiety disorder, unspecified F41. 9 ; Major depressive disor lor, single episode, unspecified F32. 9 ; Endometriosis N8 0.9 and PFD (pelvic floo r dysfunction) M62 .89 [facility] [address] Jun, Urin kenrick urgency R39.15 ; [place], [place] [phone] Intersti tial cystitis N30.10 ; Urinary frequency R35.0 ; Urinary hesitancy R39.11 and Pelvi c pain R10.2 [facility] [address] Jun, [address] [address] [facility] [address] Jun, Cysto abhilash and rectocele [address] with inco mplete [phone] uterovaginal pro lapse N81.2 ; Anxiety disorder, unspecified F41. 9 ; Major depressive disor lor, single episode, unspecified F32. 9 ; Endometriosis N8 0.9 and PFD (pelvic floo r dysfunction) M62 .89 [facility] [address] Jun, [address] [address] [facility] [address] Jun, Mixed incontinence urge [address] and stres s N39.46 ; Muscle [phone] weakness M62.81 ; Cystocele and re ctocele with incomplete uterovaginal pro lapse N81.2 ; Anxiety disorder, unspecified F41. 9 ; Major depressive disor lor, single episode, unspecified F32. 9 ; Endometriosis N8 0.9 and PFD (pelvic floo r dysfunction) M62 .89 [facility] [address] Jun, [place], [place] [phone] [facility] [address] Jun, Freq uency of urination [place], [place] [phone] R35.0 ; Urinary urgency R39.15 and Urina ry hesitancy R39.11 [facility] [address], [address] [address] [facility] [address] [address] May, [place], [place] [address] N81.10 and Rectocele N81.6 [facility] [address], [address] [address] IMMUNIZATIONS No Known Immunizations SOCIAL HISTORY Qualifiers Date Never Smoker REASON FOR REFERRAL FUNCTIONAL STATUS PLAN OF CARE VITAL SIGNS Height 63 in 2021-07-27 Weight 168.4 lbs 2021-07-27 BMI 29.83 kg/m2 2021-07-27 Blood pressure systolic 112 mm Hg 2021-07-27 Blood pressure diastolic 74 mm Hg 2021-07-27 MEDICATIONS Medication Instructions Dosage Frequency Start Date End Date Duration S tatus Claritin Active Stool Softener Active Restasis Active MiraLax Active Multivitamin Active Calcium Active Famotidine Active Gabapentin Active Vitamin C Active Fish Oil Active SEROquel Active PROCEDURES Procedure Date Ordered Result Body Site CYSTOMETROGRAM W/BOATSWAIN MATE&UP Jun 30, 2021 ANAL PRESSURE RECORD Jul 13, 2021 ELECTRICAL STIMULATION Jul 13, 2021 ANAL/URINARY MUSCLE STUDY Jul 27, 2021 ANAL/URINARY MUSCLE STUDY Jul 20, 2021 INTRAABDOMINAL PRESSURE TEST Jun 30, 2021 URINARY REFLEX STUDY Jul 23, 2021 ELECTRICAL STIMULATION Jul 20, 2021 SIMPLE CYSTOMETROGRAM Jul 23, 2021 PHYSICAL PERFORMANCE TEST Jul 20, 2021 ANAL PRESSURE RECORD Jul 27, 2021 PHYSICAL PERFORMANCE TEST Jul 13, 2021 ANAL PRESSURE RECORD Jul 20, 2021 ANAL/URINARY MUSCLE STUDY Jun 30, 2021 ANAL/URINARY MUSCLE STUDY Jul 13, 2021 ELECTRO-UROFLOWMETRY, FIRST Jun 30, 2021 URINALYSIS, AUTO, W/O SCOPE Jun 30, 2021 ELECTRICAL STIMULATION Jul 27, 2021 URINALYSIS, AUTO, W/O SCOPE Jul 23, 2021 INJECTION K+ CHLORID PER 2 MEQ Jul 23, 2021 PHYSICAL PERFORMANCE TEST Jul 27, 2021 RESULTS Name Result Date Reference Range Urinalysis, Routine - I[facility] 2021-07-23 Bilirubin neg Negative Blood neg Negative Glucose neg Negative Ketone neg Negative Leukocytes neg Negative Nitrite neg Negative pH 6.0 5.0 - 7.0 Protein neg Negative Specific [place] 1.020 1.000 - 1.030 Urobilinogen 0.2 0.2-1 Urinalysis, Routine - 2021-06-30 Bilirubin neg Negative Blood neg Negative Glucose neg Negative Ketone neg Negative Leukocytes neg Negative Nitrite neg Negative pH 5.5 5.0 - 7.0 Protein neg Negative Specific [place] 1.025 1.000 - 1.030 Urobilinogen 0.2 0.2-1 REASON FOR VISIT Insurance Providers [facility] Health Member Patient Patient Patient Patient Patient Subscriber Subscriber Subscriber Group Insurance Plan Plan Plan Plan ID Relationship Address Phone Name Date of ID Name Date of No Type Insurance Insurance Insurance Coverage to Subscriber Address Phone Name Dates HealthPart [address] HealthPart self [place] [id number] [facility] [id number] MEDICAL (GENERAL) HISTORY Type Description Date Medical History Anemia Medical History Bleeding problems Medical History Bladder infections Medical History Arthritis Medical History Migraines Medical History Depression/anxiety Medical History Asthma Medical History Blood transfusions Surgical History laparoscopy uterine tear Surgical History Deviated septom Surgical History tonsilectomy Surgical History wisdom teeth Surgical History Endoscopy colonoscopy Hospitalization History childbirth
== END 2022-12-23 08:30 | disposition other institution (70) ==
PROVIDERS: Emergency Provider Family Medicine
DX: T42.4X2A Poisoning by benzodiazepines, intentional self-harm, initial encounter (principal); R45.851 Suicidal ideations
CPT/HCPCS: 36415; 80048; 80076; 80143; 80179; 80306; 81003; 82077; 84443; 84703; 85025; 87502; 87634; 87635; 93005; 94761; 99284; 99285; A9270